=== PATIENT | male | born 2005 | race Caucasian/White ===

== ENCOUNTER 2023-12-24 12:16 | Emergency (ER) | payer OTHER ==
[~2023-12-24] VITALS: Ht 170.2 cm; Wt 81.6 kg
[2023-12-24 12:17] VITALS: BP 124/94; PULSE 93; RESP 18; TEMP 97.5; O2SAT 99
[2023-12-24 15:17] LABS: APPEARANCE,URINE CLEAR (CLEAR); BILIRUBIN,URINE NEGATIVE (NEGATIVE); BLOOD, URINE NEGATIVE (NEGATIVE); COLOR,URINE YELLOW (YELLOW); LEUKOCYTE ESTERASE ,URINE NEGATIVE (NEGATIVE); NITRITE, URINE NEGATIVE (NEGATIVE); PH,URINE 6.5 (5.0-9.0); PROTEIN,URINE NEGATIVE (NEGATIVE); UGLUCOSE NEGATIVE (NEGATIVE); UROBILINOGEN,URINE 0.2 EU/dL (0.2 - 1)
[2023-12-24 15:45] VITALS: BP 116/60; PULSE 88; O2SAT 95
== END 2023-12-24 15:45 | disposition home or self-care (01) ==
LOC: MED 12:16
DX: S39.011A Strain of muscle, fascia and tendon of abdomen, initial encounter (principal); N50.3 Cyst of epididymis; N50.811 Right testicular pain; R03.0 Elevated blood-pressure reading, without diagnosis of hypertension; X58.XXXA Exposure to other specified factors, initial encounter; Y93.89 Activity, other specified; Y92.89 Other specified places as the place of occurrence of the external cause; Y99.8 Other external cause status
CPT/HCPCS: 76870; 81003; 87491; 99284; Q0092